=== PATIENT | female | born 1955 | race Hispanic/Latino ===

== ENCOUNTER 2017-07-01 23:26 | Observation (INO) | payer BC ==
[~2017-07-01] VITALS: Ht 154.9 cm; Wt 99.8 kg
[~2017-07-01 23:26] MED LIST: CHOL200016 PO; INSU100I13 SQ; INSU10VI4 SQ; METF10004 PO; MIRA25TA PO; PANT40TA25 PO; PRED5TAB PO; PUMP300C PO; SIMV40TA5 PO; TYL3B PO; ZOLP10TA6 PO
[2017-07-01 23:52] LABS: BASOPHILS % (AUTO) 0.6 % (0.0-5.0); EOSINOPHILS % (AUTO) 1.8 % (0.0-8.0); HEMATOCRIT 34.5 % (36-48); LYMPHOCYTES % (AUTO) 31.5 % (21.0-51.0); MEAN CORPUSCULAR HEMOGLOBIN 27.4 pg (27.0-33.0); MEAN CORPUSCULAR HGB CONC 32.5 g/dL (32.0-36.0); MEAN CORPUSCULAR VOLUME 84.1 fL (79-99); MONOCYTES % (AUTO) 7.7 % (3.0-13.0); NEUTROPHILS % (AUTO) 58.4 % (40.0-77.0); PLATELET COUNT (AUTO) 248 K/uL (130-400); RED CELL DISTRIBUTION WIDTH 14.8 % (11.0-15.5); WHITE BLOOD COUNT (AUTO) 8.4 K/uL (4.8-10.8)
[2017-07-01 23:56] LABS: APPEARANCE,URINE Clear (CLEAR); BILIRUBIN,URINE Negative (NEGATIVE); COLOR,URINE Yellow (YELLOW); GLUCOSE, URINE (UA) 250 mg/dL (NEGATIVE); KETONES,URINE Negative (NEGATIVE); LEUKOCYTE ESTERASE ,URINE Negative (NEGATIVE); NITRATE,URINE Negative (NEGATIVE); OCCULT BLOOD,URINE Nonhemolyzed Trace (NEGATIVE); PROTEIN,URINE Negative (NEGATIVE)
[2017-07-02 00:02] LABS: CREATININE 0.8 mg/dL (0.5-1.5); POTASSIUM 3.4 mmol/L (3.5-5.1)
[2017-07-02 00:03] LABS: BACTERIA,URINE None Seen /HPF (None Seen); RBC,URINE 0-1 /HPF (0-1); SQUAMOUS EPITHELIAL CELL,UR Rare /LPF (0-2); WBC,URINE None Seen /HPF (0-1); YEAST,URINE BUDDING Rare /HPF (None Seen)
[2017-07-02 00:12] LABS: ALBUMIN 3.4 g/dL (3.5-5.0); BILIRUBIN,TOTAL 0.3 mg/dL (0.2-1.0); TOTAL PROTEIN, SERUM 7.1 g/dL (6.0-8.3)
[2017-07-02] MEDS ORDERED: SODIUM CHLORIDE 0.9% 1000ML 1,000 ML IV ONE (00:43)
[2017-07-02] MEDS ORDERED: ONDANSETRON HCL 4 MG/2 ML VIAL ONE ×2 (00:43→02:31)
[2017-07-02] MEDS ORDERED: MORPHINE SULFATE 4 MG/1ML SYG ONE ×2 (00:44→02:32)
[2017-07-02] MEDS ORDERED: HYDROMORPHONE HCL 0.5 MG/0.5 ML ML ONE (03:35)
[2017-07-02] MEDS ORDERED: LIDOCAINE HCL-MPF 1% 2ML VIAL IJ PRN (07:15)
[2017-07-02] MEDS ORDERED: LACTULOSE 20 GM/30 ML UDCUP PO PRN (07:15)
[2017-07-02] MEDS ORDERED: SODIUM CHLORIDE 0.9% 10 ML VIAL IVP SCH (07:15)
[2017-07-02] MEDS ORDERED: GLUCAGON 1MG KIT 1 MG ML IM PRN (07:15)
[2017-07-02] MEDS ORDERED: DiphenhydrAMINE HCL 50 MG/ML VIAL IVP PRN (07:15)
[2017-07-02] MEDS ORDERED: DIPHENHYDRAMINE HCL 25 MG CAPSULE PO PRN (07:15)
[2017-07-02] MEDS ORDERED: POTASSIUM CHLORIDE 10% ELIXIR 20 MEQ/15 ML UDCUP PO PRN (07:15)
[2017-07-02] MEDS ORDERED: POTASSIUM CHLORIDE 20MEQ/100ML 100 ML IV PRN (07:15)
[2017-07-02] MEDS ORDERED: GUAIFENESIN-DM 200/20 MG 10 ML PO PRN (07:15)
[2017-07-02] MEDS ORDERED: ZOLPIDEM TARTRATE 5 MG TAB PO PRN (07:15)
[2017-07-02] MEDS ORDERED: MORPHINE SULFATE 2 MG/ML 1ML SYG IVP PRN (07:15)
[2017-07-02] MEDS ORDERED: GUAIFENESIN SUGAR-FREE 100 MG/5 ML UDCUP PO PRN (07:15)
[2017-07-02] MEDS ORDERED: DEXTROSE 50%-WATER 50 ML DISP.SYRIN IV PRN (07:15)
[2017-07-02] MEDS ORDERED: CLONIDINE HCL 0.1 MG TABLET PO PRN (07:15)
[2017-07-02] MEDS ORDERED: ONDANSETRON HCL 4 MG/2 ML VIAL IVP PRN (07:15)
[2017-07-02] MEDS ORDERED: ACETAMINOPHEN 325 MG TAB PO PRN ×2 (07:15)
[2017-07-02] MEDS ORDERED: MAG HYDROX/AL HYDROX/SIMETH ES 30 ML SUSP UDCUP PO PRN (07:15)
[2017-07-02] MEDS ORDERED: NITROGLYCERIN 0.4 MG SL TAB SL PRN (07:15)
[2017-07-02] MEDS: INSULIN R PO SS2 SQ SCH ×4 (07:30→21:00)
[2017-07-02 08:30] VITALS: BP 155/92
[2017-07-02 11:00] VITALS: BP 134/71
[2017-07-02] MEDS: CEFTRIAXONE SODIUM 1 GM IVP SCH (11:32)
[2017-07-02] MEDS: POTASSIUM CHLORIDE 20 MEQ ERTAB PO PRN (11:33)
[2017-07-02] MEDS: PANTOPRAZOLE SODIUM 40 MG TABLET.DR PO SCH (11:34)
[2017-07-02] MEDS ORDERED: INSU100I13 SQ ×3 (12:00)
[2017-07-02] MEDS ORDERED: ZOLP12.550 PO (12:00)
[2017-07-02] MEDS ORDERED: URIN1STR90 MC (12:00)
[2017-07-02] MEDS ORDERED: METF10004 PO (12:00)
[2017-07-02] MEDS ORDERED: SIMV40TA5 PO (12:00)
[2017-07-02] MEDS ORDERED: FISH1CAP49 PO (12:00)
[2017-07-02 16:00] VITALS: BP 148/87
[2017-07-02] MEDS ORDERED: PEG 3350/NA SULF,BICARB,CL/KCL 4000 ML SOLN PO ONE (19:00)
[2017-07-02 19:15] VITALS: BP 160/73
[2017-07-02 23:10] VITALS: BP 150/82
[2017-07-02 23:52] VITALS: BP 160/73
[2017-07-03] MEDS: POTASSIUM CHLORIDE 20 MEQ ERTAB PO PRN ×3 (00:56→17:46)
[2017-07-03 03:30] VITALS: BP 135/65
[2017-07-03 04:51] LABS: BASOPHILS % (AUTO) 0.7 % (0.0-5.0); EOSINOPHILS % (AUTO) 2.3 % (0.0-8.0); HEMATOCRIT 34.2 % (36-48); LYMPHOCYTES % (AUTO) 28.8 % (21.0-51.0); MEAN CORPUSCULAR HEMOGLOBIN 27.1 pg (27.0-33.0); MEAN CORPUSCULAR HGB CONC 31.9 g/dL (32.0-36.0); MEAN CORPUSCULAR VOLUME 84.9 fL (79-99); MONOCYTES % (AUTO) 8.9 % (3.0-13.0); NEUTROPHILS % (AUTO) 59.3 % (40.0-77.0); PLATELET COUNT (AUTO) 239 K/uL (130-400); RED BLOOD CELL COUNT(AUTO) 4.02 MIL/uL (4.00-5.50); RED CELL DISTRIBUTION WIDTH 15.1 % (11.0-15.5); WHITE BLOOD COUNT (AUTO) 7.8 K/uL (4.8-10.8)
[2017-07-03 05:10] LABS: ALBUMIN 3.2 g/dL (3.5-5.0); BILIRUBIN,TOTAL 0.4 mg/dL (0.2-1.0); CREATININE 0.7 mg/dL (0.5-1.5); POTASSIUM 3.1 mmol/L (3.5-5.1); TOTAL PROTEIN, SERUM 6.8 g/dL (6.0-8.3)
[2017-07-03] MEDS: CEFTRIAXONE SODIUM 1 GM IVP SCH (05:39)
[2017-07-03] MEDS: INSULIN R PO SS2 SQ SCH ×2 (05:43→17:38)
[2017-07-03 08:00] VITALS: BP 142/74
[2017-07-03 11:00] VITALS: BP 142/74
[2017-07-03] MEDS ORDERED: IOPAMIDOL-370 100 ML VIAL IV ONE (12:24)
[2017-07-03 13:46] VITALS: BP 147/79
[2017-07-03] MEDS: PANTOPRAZOLE SODIUM 40 MG TABLET.DR PO SCH (14:06)
[2017-07-03 16:05] VITALS: BP 127/64
[2017-07-03 19:29] VITALS: BP 129/68
== END 2017-07-03 20:35 | disposition home or self-care (01) ==
LOC: EDH 23:26 → EDHIP 07-02 06:45 → 3DH 07-02 07:31 → WSH 07-03 13:45
PROVIDERS: ADMIT Family Medicine; ATTEND Family Medicine
DX: N20.0 Calculus of kidney (principal); M32.9 Systemic lupus erythematosus, unspecified; K59.00 Constipation, unspecified; E87.6 Hypokalemia; E11.9 Type 2 diabetes mellitus without complications; I10 Essential (primary) hypertension; E78.5 Hyperlipidemia, unspecified; F41.9 Anxiety disorder, unspecified; K57.90 Diverticulosis of intestine, part unspecified, without perforation or abscess without bleeding; Z96.659 Presence of unspecified artificial knee joint; Z90.49 Acquired absence of other specified parts of digestive tract
CPT/HCPCS: 36415 ×3; 74176; 74400; 80053 ×2; 81001; 82150; 82948 ×7; 83690; 84484; 85025 ×2; 87040 ×2; 87088; 93005; 96365; 96375; 96376; 99285; A4218; G0378 ×38; J0696; J1170; J1815; J2270 ×2; J2405 ×2; J3480; J7030; Q9967

== ENCOUNTER → 2017-10-02 | Outpatient (CLI) | payer BC ==
[~2017-10-02] MED LIST changes: +FISH1CAP49 PO; +FLUO20CA30 PO; -INSU10VI4 SQ; +LORA1TAB3 PO; -PUMP300C PO; -TYL3B PO; +URIN1STR90 MC; -ZOLP10TA6 PO; +ZOLP12.550 PO
== END ==
LOC: RAH 15:49
PROVIDERS: ATTEND Urology
DX: N20.0 Calculus of kidney (principal)
CPT/HCPCS: 74018; 76100

== ENCOUNTER 2017-10-23 05:15 | Emergency (ER) | payer BC ==
[~2017-10-23 05:15] MED LIST changes: -FLUO20CA30 PO; -LORA1TAB3 PO
[2017-10-23] MEDS ORDERED: MORPHINE SULFATE 4 MG/1ML SYG ONE (05:42)
[2017-10-23] MEDS ORDERED: ONDANSETRON HCL MDV 20ML 2 MG/ML VIAL ONE (05:42)
[2017-10-23 05:43] LABS: EOSINOPHILS % (AUTO) 3.4 % (0.0-8.0); HEMATOCRIT 35.7 % (36-48); LYMPHOCYTES % (AUTO) 33.4 % (21.0-51.0); MEAN CORPUSCULAR HEMOGLOBIN 27.1 pg (27.0-33.0); MEAN CORPUSCULAR HGB CONC 32.5 g/dL (32.0-36.0); MEAN CORPUSCULAR VOLUME 83.5 fL (79-99); MONOCYTES % (AUTO) 8.7 % (3.0-13.0); NEUTROPHILS % (AUTO) 53.5 % (40.0-77.0); PLATELET COUNT (AUTO) 269 K/uL (130-400); RED BLOOD CELL COUNT(AUTO) 4.27 MIL/uL (4.00-5.50); RED CELL DISTRIBUTION WIDTH 15.3 % (11.0-15.5); WHITE BLOOD COUNT (AUTO) 7.7 K/uL (4.8-10.8)
[2017-10-23 05:51] LABS: CREATININE 0.8 mg/dL (0.5-1.5); POTASSIUM 3.2 mmol/L (3.5-5.1)
[2017-10-23 05:55] LABS: INR 0.94 (0.85-1.15); PROTHROMBIN TIME 9.7 SEC (9.6-11.6)
[2017-10-23 06:09] LABS: ALBUMIN 3.5 g/dL (3.5-5.0); BILIRUBIN,TOTAL 0.4 mg/dL (0.2-1.0); CREATINE KINASE MB 2.5 ng/mL (0.5-3.6); TOTAL PROTEIN, SERUM 7.4 g/dL (6.0-8.3)
[2017-10-23 06:10] LABS: APPEARANCE,URINE Clear (CLEAR); BILIRUBIN,URINE Negative (NEGATIVE); COLOR,URINE Yellow (YELLOW); GLUCOSE, URINE (UA) Negative (NEGATIVE); KETONES,URINE Negative (NEGATIVE); LEUKOCYTE ESTERASE ,URINE Trace (NEGATIVE); NITRATE,URINE Negative (NEGATIVE); OCCULT BLOOD,URINE Negative (NEGATIVE); PH,URINE 7.5 (5.0-8.0); PROTEIN,URINE Negative (NEGATIVE); UROBILINOGEN,URINE 0.2 mg/dL (0.2-1.0)
[2017-10-23 06:16] LABS: BACTERIA,URINE None Seen /HPF (None Seen); MUCUS,URINE Rare LPF (None Seen); RBC,URINE None Seen /HPF (0-1); SQUAMOUS EPITHELIAL CELL,UR Rare /HPF (0-2); WBC,URINE 0-1 /HPF (0-1)
[2017-10-23 06:18] LABS: AMPHET/METH SCREEN,URINE NEGATIVE (NEGATIVE); BARBITURATE SCREEN, URINE NEGATIVE (NEGATIVE); BENZODIAZEPINES SCREEN,URINE NEGATIVE (NEGATIVE); CANNABINOID SCREEN,URINE NEGATIVE (NEGATIVE); COCAINE SCREEN,URINE NEGATIVE (NEGATIVE); OPIATE SCREEN,URINE NEGATIVE (NEGATIVE); PHENCYCLIDINE SCREEN,URINE NEGATIVE (NEGATIVE)
[2017-10-23] MEDS ORDERED: POTASSIUM BICARB/CIT AC 25 MEQ TABLET.EFF ONE (09:17)
== END 2017-10-23 09:38 | disposition home or self-care (01) ==
LOC: EDH 05:15
DX: F41.9 Anxiety disorder, unspecified (principal); E87.6 Hypokalemia; I10 Essential (primary) hypertension; R20.2 Paresthesia of skin; E11.9 Type 2 diabetes mellitus without complications; L93.0 Discoid lupus erythematosus; R79.1 Abnormal coagulation profile; Z79.4 Long term (current) use of insulin; Z88.2 Allergy status to sulfonamides
CPT/HCPCS: 36415; 70450; 71045; 80053; 80305; 81001; 82550; 82553; 83874; 84484; 85025; 85610; 85730; 93005; 96374; 96375; 99285; J2270

== ENCOUNTER → 2017-11-01 | Outpatient (CLI) | payer BC ==
[~2017-11-01] MED LIST changes: +FLUO20CA30 PO; +LORA1TAB3 PO
== END ==
LOC: RAH 16:03
PROVIDERS: ATTEND Urology
DX: N20.2 Calculus of kidney with calculus of ureter (principal)
CPT/HCPCS: 74018; 76100

== ENCOUNTER 2017-11-14 02:11 | Observation (INO) | payer BC ==
[~2017-11-14] VITALS: Ht 155 cm; Wt 100.0 kg
[~2017-11-14 02:11] MED LIST changes: -FLUO20CA30 PO; -LORA1TAB3 PO
[2017-11-14] MEDS ORDERED: ONDANSETRON ODT 4 MG TAB ONE (02:27)
[2017-11-14] MEDS ORDERED: MORPHINE SULFATE 4 MG/1ML SYG ONE ×2 (02:39→03:31)
[2017-11-14 02:45] LABS: BASOPHILS % (AUTO) 0.6 % (0.0-5.0); EOSINOPHILS % (AUTO) 1.7 % (0.0-8.0); HEMATOCRIT 37.7 % (36-48); MEAN CORPUSCULAR HEMOGLOBIN 26.9 pg (27.0-33.0); MEAN CORPUSCULAR HGB CONC 31.9 g/dL (32.0-36.0); MEAN CORPUSCULAR VOLUME 84.1 fL (79-99); MONOCYTES % (AUTO) 6.3 % (3.0-13.0); NEUTROPHILS % (AUTO) 66.4 % (40.0-77.0); NUCLEATED RED BLOOD CELLS 0.1 % (0.0-0.19); PLATELET COUNT (AUTO) 315 K/uL (130-400); RED BLOOD CELL COUNT(AUTO) 4.49 MIL/uL (4.00-5.50); RED CELL DISTRIBUTION WIDTH 15.8 % (11.0-15.5); WHITE BLOOD COUNT (AUTO) 12.6 K/uL (4.8-10.8)
[2017-11-14 02:58] LABS: CREATININE 0.9 mg/dL (0.5-1.5); POTASSIUM 3.1 mmol/L (3.5-5.1)
[2017-11-14 03:02] LABS: ALBUMIN 3.7 g/dL (3.5-5.0); BILIRUBIN,TOTAL 0.3 mg/dL (0.2-1.0)
[2017-11-14] MEDS ORDERED: IOPAMIDOL-370 75 ML VIAL IV ONE (03:18)
[2017-11-14] MEDS ORDERED: DICYCLOMINE HCL 10 MG/ML 2ML AMP IM ONE (03:30)
[2017-11-14] MEDS ORDERED: ONDANSETRON HCL 4 MG/2 ML VIAL ONE (03:30)
[2017-11-14 04:20] LABS: APPEARANCE,URINE Clear (CLEAR); BILIRUBIN,URINE Negative (NEGATIVE); COLOR,URINE Yellow (YELLOW); GLUCOSE, URINE (UA) Negative (NEGATIVE); KETONES,URINE Negative (NEGATIVE); LEUKOCYTE ESTERASE ,URINE Trace (NEGATIVE); NITRATE,URINE Negative (NEGATIVE); OCCULT BLOOD,URINE Moderate (NEGATIVE); PROTEIN,URINE Negative (NEGATIVE); UROBILINOGEN,URINE 0.2 mg/dL (0.2-1.0)
[2017-11-14 04:33] LABS: BACTERIA,URINE Rare /HPF (None Seen); SQUAMOUS EPITHELIAL CELL,UR 0-2 /HPF (0-2); WBC,URINE 0-1 /HPF (0-1)
[2017-11-14] MEDS ORDERED: METRONIDAZOLE 500MG/100ML BAG 100 ML ONE (05:00)
[2017-11-14] MEDS ORDERED: POTASSIUM CHLORIDE 10% ELIXIR 20 MEQ/15 ML UDCUP PO PRN (05:45)
[2017-11-14] MEDS ORDERED: ONDANSETRON HCL 4 MG/2 ML VIAL IVP PRN (05:45)
[2017-11-14] MEDS ORDERED: NITROGLYCERIN 0.4 MG SL TAB SL PRN (05:45)
[2017-11-14] MEDS ORDERED: MAG HYDROX/AL HYDROX/SIMETH ES 30 ML SUSP UDCUP PO PRN (05:45)
[2017-11-14] MEDS ORDERED: LACTULOSE 20 GM/30 ML UDCUP PO PRN (05:45)
[2017-11-14] MEDS ORDERED: ZOLPIDEM TARTRATE 5 MG TAB PO PRN (05:45)
[2017-11-14] MEDS ORDERED: GUAIFENESIN-DM 200/20 MG 10 ML PO PRN (05:45)
[2017-11-14] MEDS ORDERED: GLUCAGON 1MG KIT 1 MG ML IM PRN (05:45)
[2017-11-14] MEDS ORDERED: GUAIFENESIN SUGAR-FREE 100 MG/5 ML UDCUP PO PRN (05:45)
[2017-11-14] MEDS ORDERED: CLONIDINE HCL 0.1 MG TABLET PO PRN (05:45)
[2017-11-14] MEDS ORDERED: DEXTROSE 50%-WATER 50 ML DISP.SYRIN IV PRN (05:45)
[2017-11-14] MEDS ORDERED: DIPHENHYDRAMINE HCL 25 MG CAPSULE PO PRN (05:45)
[2017-11-14] MEDS ORDERED: ONDANSETRON HCL MDV 20ML 2 MG/ML VIAL IVP PRN (05:45)
[2017-11-14] MEDS ORDERED: POTASSIUM CHLORIDE 20MEQ/100ML 100 ML IV PRN (05:45)
[2017-11-14] MEDS ORDERED: LIDOCAINE HCL-MPF 1% 2ML VIAL IJ PRN (05:45)
[2017-11-14] MEDS ORDERED: ACETAMINOPHEN 325 MG TAB PO PRN ×2 (05:45)
[2017-11-14] MEDS ORDERED: DiphenhydrAMINE HCL 50 MG/ML VIAL IVP PRN (05:45)
[2017-11-14] MEDS ORDERED: SODIUM CHLORIDE 0.9% 1000ML 1,000 ML IV SCH (06:00)
[2017-11-14] MEDS: INSULIN R PO SS2 SQ SCH ×4 (07:30→20:33)
[2017-11-14] MEDS ORDERED: FLUO20CA30 PO (07:43)
[2017-11-14] MEDS ORDERED: INSU100I13 SQ (07:43)
[2017-11-14] MEDS ORDERED: LORA1TAB3 PO (07:51)
[2017-11-14 08:00] VITALS: BP 141/92
[2017-11-14] MEDS: PANTOPRAZOLE SODIUM 40 MG TABLET.DR PO SCH (09:36)
[2017-11-14] MEDS ORDERED: MORPHINE SULFATE 4 MG/1ML SYG IVP PRN (10:15)
[2017-11-14 11:00] VITALS: BP 112/70
[2017-11-14] MEDS: POTASSIUM CHLORIDE 20 MEQ ERTAB PO PRN ×3 (11:10→20:09)
[2017-11-14] MEDS: METRONIDAZOLE 500MG/100ML BAG 100 ML IVPB SCH ×2 (13:17→20:04)
[2017-11-14 16:00] VITALS: BP 152/67
[2017-11-14 19:00] VITALS: BP 144/62
[2017-11-15] VITALS: BP 132/66
[2017-11-15 04:00] VITALS: BP 115/62
[2017-11-15 04:12] LABS: BASOPHILS % (AUTO) 0.6 % (0.0-5.0); EOSINOPHILS % (AUTO) 3.7 % (0.0-8.0); HEMATOCRIT 29.8 % (36-48); LYMPHOCYTES % (AUTO) 37.8 % (21.0-51.0); MEAN CORPUSCULAR HEMOGLOBIN 28.5 pg (27.0-33.0); MEAN CORPUSCULAR VOLUME 83.8 fL (79-99); MONOCYTES % (AUTO) 8.9 % (3.0-13.0); PLATELET COUNT (AUTO) 258 K/uL (130-400); RED BLOOD CELL COUNT(AUTO) 3.56 MIL/uL (4.00-5.50); RED CELL DISTRIBUTION WIDTH 15.8 % (11.0-15.5)
[2017-11-15 04:42] LABS: ALBUMIN 2.9 g/dL (3.5-5.0); BILIRUBIN,TOTAL 0.3 mg/dL (0.2-1.0); CREATININE 0.7 mg/dL (0.5-1.5); POTASSIUM 3.5 mmol/L (3.5-5.1); TOTAL PROTEIN, SERUM 6.3 g/dL (6.0-8.3)
[2017-11-15] MEDS: METRONIDAZOLE 500MG/100ML BAG 100 ML IVPB SCH ×2 (05:47→14:47)
[2017-11-15] MEDS: POTASSIUM CHLORIDE 20 MEQ ERTAB PO PRN ×2 (05:47→12:06)
[2017-11-15] MEDS: INSULIN R PO SS2 SQ SCH ×3 (06:03→16:30)
[2017-11-15 08:00] VITALS: BP 142/73
[2017-11-15] MEDS: PANTOPRAZOLE SODIUM 40 MG TABLET.DR PO SCH (09:33)
[2017-11-15 11:00] VITALS: BP 127/55
[2017-11-15 16:00] VITALS: BP 138/73
== END 2017-11-15 18:05 | disposition home or self-care (01) ==
LOC: EDH 02:11 → EDHIP 05:02 → 3AH 07:26
PROVIDERS: ADMIT Family Medicine; ATTEND Family Medicine
DX: K52.9 Noninfective gastroenteritis and colitis, unspecified (principal); N20.0 Calculus of kidney; R10.9 Unspecified abdominal pain; E11.9 Type 2 diabetes mellitus without complications; E78.5 Hyperlipidemia, unspecified; I10 Essential (primary) hypertension; I25.10 Atherosclerotic heart disease of native coronary artery without angina pectoris; Z96.659 Presence of unspecified artificial knee joint
CPT/HCPCS: 36415 ×2; 74177; 80053 ×2; 81001; 82948 ×6; 83690; 85025 ×2; 96365; 96366 ×2; 96372 ×2; 99285; G0378 ×37; J0500; J1815 ×4; J2270 ×2; J2405; J3490 ×5; Q9967; C9113

== ENCOUNTER → 2018-04-04 | Outpatient (CLI) | payer BC ==
[~2018-04-04] MED LIST changes: -CHOL200016 PO; +FLUO20CA30 PO; +LORA1TAB3 PO; +METF-446 PO; -METF10004 PO; +[UNRECOGNIZED DRUG - CODE] PO
== END | disposition home or self-care (01) ==
LOC: RAH 12:32
PROVIDERS: ATTEND Physical Medicine & Rehabilitation
DX: M47.24 Other spondylosis with radiculopathy, thoracic region (principal); M47.896 Other spondylosis, lumbar region; M48.07 Spinal stenosis, lumbosacral region
CPT/HCPCS: 72070; 72110

== ENCOUNTER → 2018-05-02 | Outpatient (CLI) | payer BC | END | disposition home or self-care (01) | LOC: RAH 04-30 12:05 | PROVIDERS: ATTEND Physical Medicine & Rehabilitation | DX: M51.14 Intervertebral disc disorders with radiculopathy, thoracic region (principal); M48.04 Spinal stenosis, thoracic region; M47.24 Other spondylosis with radiculopathy, thoracic region | CPT/HCPCS: 72146 ==

== ENCOUNTER → 2018-10-22 | Outpatient (CLI) | payer BC ==
[~2018-10-22] MED LIST changes: +CHOL200016 PO; -[UNRECOGNIZED DRUG - CODE] PO
== END | disposition home or self-care (01) ==
LOC: RAH 09:51
PROVIDERS: ATTEND Family Medicine
DX: I08.0 Rheumatic disorders of both mitral and aortic valves (principal); I63.331 Cerebral infarction due to thrombosis of right posterior cerebral artery
CPT/HCPCS: 93306; 93880

== ENCOUNTER → 2018-11-04 | Outpatient (CLI) | payer BC | END | disposition home or self-care (01) | LOC: RAH 10:47 | PROVIDERS: ATTEND Family Medicine | DX: G93.89 Other specified disorders of brain (principal); I63.331 Cerebral infarction due to thrombosis of right posterior cerebral artery | CPT/HCPCS: 70544 ==

== ENCOUNTER 2019-03-01 10:27 | Observation (INO) | payer BC ==
[~2019-03-01] VITALS: Ht 157.5 cm; Wt 100.7 kg
[2019-03-01 10:55] LABS: BASOPHILS % (AUTO) 0.7 % (0.0-5.0); EOSINOPHILS % (AUTO) 3.2 % (0.0-8.0); HEMATOCRIT 35.8 % (36-48); LYMPHOCYTES % (AUTO) 31.1 % (21.0-51.0); MEAN CORPUSCULAR HEMOGLOBIN 26.8 pg (27.0-33.0); MEAN CORPUSCULAR VOLUME 83.8 fL (79-99); MONOCYTES % (AUTO) 7.4 % (3.0-13.0); NEUTROPHILS % (AUTO) 57.6 % (40.0-77.0); PLATELET COUNT (AUTO) 256 K/uL (130-400); RED BLOOD CELL COUNT(AUTO) 4.26 MIL/uL (4.00-5.50); RED CELL DISTRIBUTION WIDTH 15.5 % (11.0-15.5); WHITE BLOOD COUNT (AUTO) 6.1 K/uL (4.8-10.8)
[2019-03-01 11:20] LABS: CREATININE 0.8 mg/dL (0.5-1.5); POTASSIUM 3.6 mmol/L (3.5-5.1)
[2019-03-01 11:24] LABS: ALBUMIN 3.4 g/dL (3.5-5.0); BILIRUBIN,TOTAL 0.3 mg/dL (0.2-1.0); TOTAL PROTEIN, SERUM 6.9 g/dL (6.0-8.3)
[2019-03-01 11:27] LABS: APPEARANCE,URINE Clear (CLEAR); BILIRUBIN,URINE Negative (NEGATIVE); COLOR,URINE Yellow (YELLOW); GLUCOSE, URINE (UA) TRACE mg/dL (NEGATIVE); KETONES,URINE Negative (NEGATIVE); LEUKOCYTE ESTERASE ,URINE Negative (NEGATIVE); NITRATE,URINE Negative (NEGATIVE); OCCULT BLOOD,URINE Negative (NEGATIVE); PROTEIN,URINE Negative (NEGATIVE); UROBILINOGEN,URINE 0.2 mg/dL (0.2-1.0)
[2019-03-01 11:30] LABS: INR 0.95 (0.85-1.15); PARTIAL THROMBOPLASTIN TIME 25.8 SEC (26.3-35.5)
[2019-03-01 11:34] LABS: BACTERIA,URINE Rare /HPF (None Seen); RBC,URINE 0-1 /HPF (0-1); SQUAMOUS EPITHELIAL CELL,UR Rare /HPF (0-2); WBC,URINE 0-1 /HPF (0-1)
[2019-03-01 11:44] LABS: AMPHET/METH SCREEN,URINE NEGATIVE (NEGATIVE); BARBITURATE SCREEN, URINE NEGATIVE (NEGATIVE); BENZODIAZEPINES SCREEN,URINE NEGATIVE (NEGATIVE); CANNABINOID SCREEN,URINE NEGATIVE (NEGATIVE); COCAINE SCREEN,URINE NEGATIVE (NEGATIVE); OPIATE SCREEN,URINE NEGATIVE (NEGATIVE); PHENCYCLIDINE SCREEN,URINE NEGATIVE (NEGATIVE)
[2019-03-01] MEDS ORDERED: DIAZEPAM 5 MG TABLET ONE (11:49)
[2019-03-01] MEDS ORDERED: IOHEXOL-350 75 ML VIAL IV ONE (11:51)
[2019-03-01] MEDS ORDERED: ASPIRIN 325 MG TABLET ONE (16:02)
[2019-03-01] MEDS ORDERED: SODIUM CHLORIDE 0.9% 1000ML 1,000 ML IV ONE (16:03)
[2019-03-01] MEDS ORDERED: POTASSIUM CHLORIDE 20MEQ/100ML 100 ML IV PRN (17:00)
[2019-03-01] MEDS ORDERED: POTASSIUM CHLORIDE 10% ELIXIR 20 MEQ/15 ML UDCUP PO PRN (17:00)
[2019-03-01] MEDS: SODIUM CHLORIDE 0.9% 1000ML 1,000 ML IV SCH (17:00)
[2019-03-01] MEDS ORDERED: POTASSIUM CHLORIDE 20 MEQ ERTAB PO PRN (17:00)
[2019-03-01] MEDS ORDERED: LIDOCAINE HCL-MPF 1% 2ML VIAL IJ PRN (17:00)
[2019-03-01 19:30] LABS: ALBUMIN 3.6 g/dL (3.5-5.0); BILIRUBIN,TOTAL 0.3 mg/dL (0.2-1.0); CREATININE 0.8 mg/dL (0.5-1.5); POTASSIUM 3.9 mmol/L (3.5-5.1); TOTAL PROTEIN, SERUM 7.5 g/dL (6.0-8.3)
[2019-03-01 19:34] LABS: HEMOGLOBIN A1C 8.8 % (4.0-6.0)
[2019-03-01 21:30] VITALS: BP 157/71
[2019-03-01] MEDS ORDERED: KETOROLAC TROMETHAMINE 15MG/ML IV PRN (23:45)
[2019-03-01] MEDS ORDERED: MORPHINE SULFATE 2 MG/ML 1ML SYG ONE (23:50)
[2019-03-02] VITALS (7 sets, daily range): BP systolic 143–167; BP diastolic 65–98
[2019-03-02] MEDS: METHYLPREDNISOLONE SOD SUCC 125MG/2ML VIAL IVP SCH ×3 (01:39→21:13)
[2019-03-02] MEDS: MORPHINE SULFATE 2 MG/ML 1ML SYG IVP PRN ×2 (04:00→21:26)
[2019-03-02 04:48] LABS: CREATININE 0.8 mg/dL (0.5-1.5); POTASSIUM 3.7 mmol/L (3.5-5.1)
[2019-03-02 04:56] LABS: HEMATOCRIT 36.8 % (36-48); MEAN CORPUSCULAR HEMOGLOBIN 27.2 pg (27.0-33.0); MEAN CORPUSCULAR HGB CONC 32.4 g/dL (32.0-36.0); MEAN CORPUSCULAR VOLUME 84.1 fL (79-99); PLATELET COUNT (AUTO) 286 K/uL (130-400); RED BLOOD CELL COUNT(AUTO) 4.38 MIL/uL (4.00-5.50); RED CELL DISTRIBUTION WIDTH 16.1 % (11.0-15.5); WHITE BLOOD COUNT (AUTO) 8.8 K/uL (4.8-10.8)
[2019-03-02] MEDS ORDERED: OMEG100032 PO (05:43)
[2019-03-02] MEDS ORDERED: METF-446 PO (05:43)
[2019-03-02] MEDS ORDERED: WHEA1POW2 PO (05:43)
[2019-03-02] MEDS ORDERED: MAGN400T40 PO (05:43)
[2019-03-02] MEDS ORDERED: ASPI-1026 PO (05:43)
[2019-03-02] MEDS ORDERED: ZOLP10TA6 PO (05:43)
[2019-03-02] MEDS ORDERED: POTA10TA19 PO (05:58)
[2019-03-02 06:02] LABS: ERYTHROCYTE SEDIMENTATION RATE 31 MM/HR (0-30)
[2019-03-02] MEDS ORDERED: PROBIOTIC PO (06:02)
[2019-03-02] MEDS: SODIUM CHLORIDE 0.9% 1000ML 1,000 ML IV SCH ×2 (07:06→21:13)
[2019-03-02] MEDS ORDERED: LORAZEPAM 2 MG/ML 1 ML VIAL IVP PRN (08:15)
[2019-03-02] MEDS: ASPIRIN 325MG EC TAB 325 MG TABLET.DR PO SCH (10:44)
[2019-03-02] MEDS ORDERED: HUMLIS7525 SQ ×3 (17:23)
[2019-03-02] MEDS ORDERED: INSULIN HUMULIN R 100 UNIT/ML 3ML ONE (17:31)
[2019-03-02] MEDS ORDERED: ZOLPIDEM TARTRATE 5 MG TAB PO PRN (18:00)
[2019-03-02] MEDS ORDERED: SIMVASTATIN 20 MG TABLET PO SCH (21:00)
[2019-03-02] MEDS: INSULIN HUMULIN R 100 UNIT/ML 3ML SQ SCH (21:25)
[2019-03-03 03:30] VITALS: BP 151/71
[2019-03-03 05:25] LABS: HEMATOCRIT 36.6 % (36-48); MEAN CORPUSCULAR HEMOGLOBIN 27.1 pg (27.0-33.0); MEAN CORPUSCULAR HGB CONC 32.2 g/dL (32.0-36.0); PLATELET COUNT (AUTO) 273 K/uL (130-400); RED BLOOD CELL COUNT(AUTO) 4.36 MIL/uL (4.00-5.50); WHITE BLOOD COUNT (AUTO) 8.5 K/uL (4.8-10.8)
[2019-03-03 05:35] LABS: CREATININE 0.8 mg/dL (0.5-1.5); POTASSIUM 3.9 mmol/L (3.5-5.1)
[2019-03-03] MEDS: INSULIN HUMULIN R 100 UNIT/ML 3ML SQ SCH ×3 (06:27→16:42)
[2019-03-03 06:53] LABS: ERYTHROCYTE SEDIMENTATION RATE 30 MM/HR (0-30)
[2019-03-03] MEDS ORDERED: INSULIN HUMULIN 70/30 100 UNIT/ML 3ML SQ SCH ×3 (07:30→16:30)
[2019-03-03 08:08] VITALS: BP 138/79
[2019-03-03] MEDS: METHYLPREDNISOLONE SOD SUCC 125MG/2ML VIAL IVP SCH (08:26)
[2019-03-03] MEDS: ASPIRIN 325MG EC TAB 325 MG TABLET.DR PO SCH (08:27)
[2019-03-03] MEDS ORDERED: PANTOPRAZOLE SODIUM 40 MG TABLET.DR PO SCH (09:00)
[2019-03-03 11:54] VITALS: BP 178/79
[2019-03-03 16:25] VITALS: BP 165/81
== END 2019-03-03 18:37 | disposition home or self-care (01) ==
LOC: EDH 10:27 → EDHIP 14:19 → 4BH 21:57
PROVIDERS: ADMIT Internal Medicine; ATTEND Internal Medicine
DX: G51.0 Bell's palsy (principal); E11.9 Type 2 diabetes mellitus without complications; E66.01 Morbid (severe) obesity due to excess calories; E78.5 Hyperlipidemia, unspecified; R47.1 Dysarthria and anarthria; G93.89 Other specified disorders of brain; I10 Essential (primary) hypertension; I25.10 Atherosclerotic heart disease of native coronary artery without angina pectoris; R13.10 Dysphagia, unspecified; Z79.4 Long term (current) use of insulin; Z79.82 Long term (current) use of aspirin; Z86.73 Personal history of transient ischemic attack (TIA), and cerebral infarction without residual deficits; Z95.5 Presence of coronary angioplasty implant and graft; Z79.01 Long term (current) use of anticoagulants; Z79.899 Other long term (current) drug therapy
CPT/HCPCS: 36415 ×3; 70450; 70496; 70498; 70551; 71045; 72141; 73030; 80048 ×2; 80053; 80305; 81001; 82550; 82948 ×8; 83036; 83721; 84484; 84702; 85025; 85027 ×2; 85610; 85651 ×3; 85730; 92522; 92610; 93005; 96372 ×2; 96374; 96375; 96376 ×2; 99283; G0378 ×50; J1815 ×8; J2060; J2930 ×4; J7030 ×2; Q9967

== ENCOUNTER 2019-07-22 06:35 | Observation (INO) | payer BC ==
[2019-07-18 17:15] VITALS: BP 170/70
[2019-07-18 17:45] LABS: POTASSIUM 3.9 mmol/L (3.5-5.1)
[2019-07-18 21:45] LABS: BASOPHILS % (AUTO) 0.8 % (0.0-5.0); LYMPHOCYTES % (AUTO) 23.3 % (21.0-51.0); MEAN CORPUSCULAR HEMOGLOBIN 25.6 pg (27.0-33.0); MEAN CORPUSCULAR HGB CONC 28.7 g/dL (32.0-36.0); MEAN CORPUSCULAR VOLUME 89.2 fL (79-99); MONOCYTES % (AUTO) 6.7 % (3.0-13.0); NEUTROPHILS % (AUTO) 67.8 % (40.0-77.0); PLATELET COUNT (AUTO) 293 K/uL (130-400); RED BLOOD CELL COUNT(AUTO) 4.26 MIL/uL (4.00-5.50); RED CELL DISTRIBUTION WIDTH 14.8 % (11.0-15.5); WHITE BLOOD COUNT (AUTO) 7.1 K/uL (4.8-10.8)
--- NOTE | 2019-07-21 13:45 | NUR ---
ABNORMAL LABS PER ROSIE, MAY FAX LAB RESULT TO OFFICE AND SHE WILL SHOW IT TO DR. HURT, HE WILL BE IN OFFICE THIS PM. CBC FAXED.
--- NOTE | 2019-07-21 13:50 | NUR ---
ORDERS CBC RESULT REVIEWED BY DR. HURT, ORDERS TO REPEAT CBC IN AM, UPON ARRIVAL.
[~2019-07-22] VITALS: Ht 154.9 cm; Wt 102.2 kg
[2019-07-22] VITALS (26 sets, daily range): BP systolic 130–178; BP diastolic 70–96
[~2019-07-22 06:35] MED LIST changes: +ASPI-1026 PO; -CHOL200016 PO; -FISH1CAP49 PO; -FLUO20CA30 PO; +HUMLIS7525 SQ; -INSU100I13 SQ; -LORA1TAB3 PO; +MAGN400T40 PO; +OMEG100032 PO; -PRED5TAB PO; +PROBIOTIC PO; +SIMV-46 PO; -SIMV40TA5 PO; +WHEA1POW2 PO; +ZOLP10TA6 PO; -ZOLP12.550 PO
[2019-07-22 06:53] LABS: BASOPHILS % (AUTO) 0.5 % (0.0-5.0); EOSINOPHILS % (AUTO) 2.7 % (0.0-8.0); HEMATOCRIT 36.1 % (36-48); LYMPHOCYTES % (AUTO) 32.9 % (21.0-51.0); MEAN CORPUSCULAR HGB CONC 30.5 g/dL (32.0-36.0); MEAN CORPUSCULAR VOLUME 85.3 fL (79-99); MONOCYTES % (AUTO) 7.9 % (3.0-13.0); NEUTROPHILS % (AUTO) 55.6 % (40.0-77.0); PLATELET COUNT (AUTO) 286 K/uL (130-400); RED BLOOD CELL COUNT(AUTO) 4.23 MIL/uL (4.00-5.50); RED CELL DISTRIBUTION WIDTH 14.8 % (11.0-15.5); WHITE BLOOD COUNT (AUTO) 7.5 K/uL (4.8-10.8)
[2019-07-22] MEDS ORDERED: LIDOCAINE 1%-EPI 1:100,000 20 ML VIAL IJ ONE (06:54)
[2019-07-22] MEDS ORDERED: SODIUM CHLORIDE 0.9% 1000ML 1,000 ML IV ONE (07:02)
[2019-07-22] MEDS ORDERED: SUCCINYLCHOLINE 200MG/10ML SYR ONE (07:04)
[2019-07-22] MEDS ORDERED: LIDOCAINE HCL-MPF 1% 5ML AMP IJ ONE (07:04)
[2019-07-22] MEDS ORDERED: PROPOFOL 10 MG/ML 20ML VIAL IV ONE (07:05)
[2019-07-22] MEDS ORDERED: FENTANYL CITRATE PF 50 MCG/1 ML 2ML VIAL ONE ×2 (07:05→08:06)
[2019-07-22] MEDS ORDERED: PRED5TAB PO (07:29)
[2019-07-22] MEDS ORDERED: CEFAZOLIN SODIUM 1 GM VIAL ONE (07:32)
[2019-07-22] MEDS ORDERED: DEXAMETHASONE SOD PHOSPHATE 10MG/ML 1ML VIAL ONE (07:50)
[2019-07-22] MEDS ORDERED: ESMOLOL HCL 10 MG/ML 10 ML VIAL ONE (08:20)
[2019-07-22] MEDS ORDERED: FENTANYL CITRATE PF 50 MCG/1 ML 5ML AMP IV ONE (08:20)
[2019-07-22] MEDS ORDERED: SODIUM CHLORIDE 0.9% 10 ML VIAL ONE (08:20)
[2019-07-22] MEDS ORDERED: PHENYLEPHRINE HCL 10 MG/ML 1ML VIAL IV ONE (08:20)
[2019-07-22] MEDS ORDERED: MORPHINE-NS 50 MG/50 ML 50 ML IV ONE (11:21)
[2019-07-22] MEDS ORDERED: ACETAMINOPHEN-CODEINE 300/30MG TAB PO PRN (11:45)
[2019-07-22] MEDS ORDERED: PHARMACY COMMUNICATION MISC SCH (11:45)
[2019-07-22] MEDS ORDERED: MORPHINE-NS 50 MG/50 ML 50 ML IV PRN (12:30)
[2019-07-22] MEDS ORDERED: NALOXONE HCL 0.4 MG/1 ML ML IVP PRN (12:30)
[2019-07-22] MEDS: CEPHALEXIN 500 MG CAPSULE PO SCH ×2 (16:00→22:56)
[2019-07-22] MEDS: DEXTROSE 5 % AND 0.9 % NACL 1,000 ML IV SCH (16:03)
[2019-07-22] MEDS ORDERED: INSULIN HUMULIN 70/30 100 UNIT/ML 3ML SQ SCH (16:30)
[2019-07-22] MEDS: INSULIN HUMULIN R 100 UNIT/ML 3ML SQ SCH ×2 (16:30→20:47)
[2019-07-22] MEDS: FISH OIL 1000 MG/CAP PO SCH (16:57)
[2019-07-22] MEDS: METFORMIN HCL 500 MG TABLET PO SCH (17:01)
[2019-07-22] MEDS ORDERED: ZOLPIDEM TARTRATE 5 MG TAB PO SCH (21:00)
[2019-07-22] MEDS ORDERED: SIMVASTATIN 20 MG TABLET PO SCH (21:00)
[2019-07-23] MEDS: DEXTROSE 5 % AND 0.9 % NACL 1,000 ML IV SCH (00:15)
[2019-07-23 03:42] VITALS: BP 150/86
[2019-07-23] MEDS: INSULIN HUMULIN R 100 UNIT/ML 3ML SQ SCH (06:33)
[2019-07-23 07:08] LABS: HEMATOCRIT 35.3 % (36-48); MEAN CORPUSCULAR HEMOGLOBIN 25.9 pg (27.0-33.0); MEAN CORPUSCULAR HGB CONC 30.6 g/dL (32.0-36.0); MEAN CORPUSCULAR VOLUME 84.7 fL (79-99); PLATELET COUNT (AUTO) 285 K/uL (130-400); RED BLOOD CELL COUNT(AUTO) 4.17 MIL/uL (4.00-5.50); RED CELL DISTRIBUTION WIDTH 14.8 % (11.0-15.5); WHITE BLOOD COUNT (AUTO) 11.8 K/uL (4.8-10.8)
[2019-07-23 07:30] VITALS: BP 149/71
[2019-07-23] MEDS ORDERED: PROBIOTIC PO SCH (07:30)
[2019-07-23] MEDS ORDERED: INSULIN HUMULIN 70/30 100 UNIT/ML 3ML SQ SCH ×2 (07:30→11:30)
[2019-07-23] MEDS: FISH OIL 1000 MG/CAP PO SCH (08:00)
[2019-07-23] MEDS: METFORMIN HCL 500 MG TABLET PO SCH (08:32)
[2019-07-23] MEDS ORDERED: PREDNISONE 5 MG TABLET PO SCH (09:00)
[2019-07-23] MEDS ORDERED: PANTOPRAZOLE SODIUM 40 MG TABLET.DR PO SCH (09:00)
[2019-07-23] MEDS ORDERED: [UNRECOGNIZED DRUG - OTHER] MC SCH (09:00)
--- NOTE | 2019-07-23 09:45 | NUR ---
DR. HURT AT THE BEDSIDE, REMOVED DRESSING FROM NECK, REMOVED MALICK DRAIN. REDRESSED AREA WITH DRY DRESSING. ORDERED TO DISCONTINUE DEVICE REPAIR TECHNICIAN MORPHINE. AND OK TO BE DISCHARGED HOME FOLLOW UP ON SUNDAY. PATIENT AND SPOUSE EDUCATED ON INCISIONAL CARE AND PRECAUTIONS.
--- NOTE | 2019-07-23 10:31 | NUR ---
DISCHARGE INSTRUCTIONS GIVEN TO PATIENT AND SPOUSE AT BEDSIDE. MADE AWARE OF NEED TO FOLLOW UP WITH DR. HURT ON SUNDAY UNABLE TO SCHEDULE APPOINTMENT DUE TO OFFICE CLOSED. MADE AWARE OF NEW RX FOR TYLENOL #3 AND KEFLEX PO. PATIENT AT THIS TIME DENIES ANY PAIN, VOICES SHE IS READY TO GO HOME. IV TO LEFT AC REMOVED WITH NO COMPLICATIONS. DRESSING TO NECK DRY AND INTACT. INSTRUCTED ALL HOME MEDICATIONS CONTINUE WITH NO CHANGE. PATIENT WILL BE TRANSPORTED HOME BY SPOUSE
[2019-07-23] MEDS: CEPHALEXIN 500 MG CAPSULE PO SCH (11:11)
== END 2019-07-23 11:15 | disposition home or self-care (01) ==
LOC: DAH 06:35 → DAHIP 06:36 → 4DH 10:18
PROVIDERS: ADMIT Otolaryngology Plastic Surgery within the Head & Neck; ATTEND Otolaryngology Plastic Surgery within the Head & Neck
DX: C73 Malignant neoplasm of thyroid gland (principal); E11.9 Type 2 diabetes mellitus without complications; Z96.652 Presence of left artificial knee joint; Z88.2 Allergy status to sulfonamides
CPT/HCPCS: 36415 ×3; 60210; 60512; 80048; 82948 ×6; 85025 ×2; 85027; 88307; 96372 ×2; 96374; A4215; A4221; A4222; A4223; A4452; A4663; G0378 ×19; J0330; J0690; J1100; J1815 ×4; J2270; J2370; J2704; J3010 ×3; J3490 ×3; J7030; J7042; J7512

== ENCOUNTER → 2019-11-06 | Outpatient (CLI) | payer BC ==
[~2019-11-06] MED LIST changes: -MAGN400T40 PO; +PRED5TAB PO
== END | disposition home or self-care (01) ==
LOC: RAH 13:22
PROVIDERS: ATTEND Urology
DX: K57.30 Diverticulosis of large intestine without perforation or abscess without bleeding (principal); K76.0 Fatty (change of) liver, not elsewhere classified; K42.9 Umbilical hernia without obstruction or gangrene; K59.00 Constipation, unspecified; Z90.49 Acquired absence of other specified parts of digestive tract
CPT/HCPCS: 74176

== ENCOUNTER → 2023-12-14 | Outpatient (CLI) | payer OTHER ==
[~2023-12-14] MED LIST changes: -PANT40TA25 PO; +PANT40TA54 PO
== END | disposition home or self-care (01) ==
LOC: RAH 09:42
PROVIDERS: ATTEND Internal Medicine Gastroenterology
DX: R13.10 Dysphagia, unspecified (principal)
CPT/HCPCS: 74220

== ENCOUNTER → 2024-01-16 | Outpatient (CLI) | payer OTHER | END | disposition home or self-care (01) | LOC: RAH 12:57 | PROVIDERS: ATTEND Internal Medicine Gastroenterology | DX: R13.11 Dysphagia, oral phase (principal); R63.30 Feeding difficulties, unspecified | CPT/HCPCS: 74230; 92611 ==

== ENCOUNTER 2024-09-20 23:26 | Emergency (ER) | payer OTHER ==
[~2024-09-20] VITALS: Ht 154.9 cm; Wt 97.1 kg
--- NOTE | 2024-09-21 00:07 | ERN ---
ED Note History of Present Illness Stated Complaint: FALL Chief Complaint: Mechanical Fall Time Seen by MD: 00:00 Dictation: Ms. Ryan is a 69-year-old female came to the ER due to pain after she sustained a fall at 5:00 p.m. today. Patient went to a store and apparently tripped on the [employer] and fell forward and outstretched her arms to support herself but right knee hit the floor. She did not sustain any injury to the head or rest of the body most of the pain since fall has been in the knee right knee, right hip and both the wrists. No loss of consciousness patient is not on any blood thinners. She drove herself home and ambulated without any iss ues. As she informed her about the fall, she also began experiencing pain and decided to come into the ER for evaluation. She had a walker at homes since her knee surgery many years ago and she use the walker today Temperature 98.1 pulse 81 respirations 20 blood pressure 118/79 with a pulse oximetry of 96% on room air Her chronic medical problems include diabetes mellitus type 2, hypertension and morbid obesity, degenerative arthritis of the knee Allergies: Coded Allergies: Sulfa(Sulfonamide Antibiotics) (Verified Allergy, 05/15/12) Home Meds Active Scripts Acetaminophen with Codeine (Acetaminophen-Cod #3 Tablet) 300 Mg-30 Mg Tablet, 1 TAB PO Q6HPRN for pain, #20 TAB Prov:AXEL PAGAN MD 09/21/24 Reported Medications Prednisone (Prednisone) 5 Mg Tablet, 5 MG PO AM, TAB 07/22/19 Insulin NPL/Insulin Lispro (Humalog Mix 75/25) 100 Units/Ml Inj, 42 UNITS SQ ACDINNER, ML 03/02/19 Insulin NPL/Insulin Lispro (Humalog Mix 75/25) 100 Units/Ml Inj, 17 UNITS SQ ACLUNCH, ML 03/02/19 Insulin NPL/Insulin Lispro (Humalog Mix 75/25) 100 Units/Ml Inj, 48 UNITS SQ ACBKFST, ML 03/02/19 [Probiotic 20 Billion] No Conflict Check, 1 DOSE PO DAILYBKFST 03/02/19 [place]-3/Dha/Epa/Fish Oil (Fish Oil Conc 1,000 mg Softgel) 1,000 Mg Capsule, 1000 MG PO BIDMEALS, CAP 03/02/19 Wheat Dextrin (Benefiber) 1 Each Powd.pack, 1 EACH PO DAILY 03/02/19 Aspirin (Aspirin) 325 Mg Tablet, 325 MG PO DAILY, TAB 03/02/19 Metformin HCl (Metformin HCl) 1,000 Mg Tablet, 1000 MG PO BIDMEALS, TAB 03/02/19 Zolpidem Tartrate (Zolpidem Tartrate) 10 Mg Tablet, 10 MG PO HS, TAB 03/02/19 Urine Leukocyte Test (Azo) 1 Each Strip, 1 EACH MC DAILY, EACH 07/02/17 Simvastatin (Simvastatin) 40 Mg Tablet, 40 MG PO HS, TAB 07/02/17 Mirabegron (Myrbetriq) 25 Mg Tab.er.24h, 25 MG PO AM, TAB 08/18/16 Pantoprazole Sodium (Pantoprazole Sodium) 40 Mg Tablet.dr, 40 MG PO AM, TAB 08/18/16 Past Medical History Past Medical History: Diabetes-Type II, Hypertension Surgical History: Other Surgical History Other: LEFT KNEE, RT SHOULDER Family History: Negative Social History: Negative History: Not Applicable RN Note Reviewed/Agreed w/PFSH: Yes Review of System Dictation Constitutional: Negative for fever,chills, and weight loss Eyes: Negative for injury, pain,redness, and discharge ENT: Negative for injury,pain or swelling Cardiovascular: Negative for chest pain, palpitations, and edema Respiratory: Negative for shortness of breath, cough, and wheezing, Abdomen/GI: Negative for abdominal pain, nausea, vomiting, diarrhea, and constipation Back: Negative for injury and pain : Negative for injury, bleeding and discharge MS/Extremity: Positive for injury to the knees, hips and unable to bear weight and get out of chair also pain of both the wrists due to outstretched hands during fall Skin: Negative for rash, and discoloration Neuro: Negative for headache, weakness, numbness, tingling, and seizure Psych: Negative for suicide ideation, homicidal ideation, and hallucinations Initial Vital Sign VS Vital Signs Date Time Temp Pulse Resp B/P (MAP) Pulse Ox O2 Delivery O2 Flow Rate FiO2 09/20/24 23:27 98.1 81 20 118/79 96 Room Air Physical Exam Dictation General: awake, alert, NAD , extremely obese Head/Face: Normocephalic, atraumatic Eyes: PERRL, EOMI, vision at baseline ENT: oral cavity clear, TMs clear, no signs of infection Neck: Trachea midline, supple, no nuchal rigidity Cardiovascular: RRR, normal S1/S2, No MRGs, no JVD Respiratory: CTAB, no respiratory distress, No rales or wheezes Abdomen: Soft, non-tender, non-distended, normal bowel sounds, no guarding or rebound. Skin: Warm, dry, normal turgor, no rash MS/Extremity: Pulses equal, no cyanosis, neurovascular intact, FROM ecchymosis on the right knee joint. Unable to define the joint due to excessive adipose tissue Neuro: COAx4, GCS 15, strength 5/5, CN 2-12 intact, normal cerebellar exam, normal gait, Psych: Normal behavior, mood, and affect normal Extremities-trace edema without any palpable cords, Homans sign is negative Results (Laboratory/Radiology) Labs Reviewed?: Yes ED Course ED Course Orders Procedure Category Date Status Time Knee 4+Vws Rt RAD 09/20/24 Resulted 23:39 Wrist Comp 3+Vws Lt RAD 09/20/24 Resulted 23:39 Wrist Comp 3+Vws Rt RAD 09/20/24 Resulted 23:39 Femur 2vw Right RAD 09/20/24 Resulted 23:39 Ketorolac PHA 09/21/24 Complete Tromethamine 30mg/Ml 01:30 Morphine 4mg Syg PHA 09/21/24 In Process (Morphine 4mg Syg) 02:30 Current Medications Medications (Trade) Dose Ordered Sig/Francisca Route PRN Reason Start Time Stop Time Status Last Admin Dose Admin Ketorolac Tromethamine (toRADol) 30 mg ONCE ONCE IM 09/21/24 01:30 09/21/24 01:31 DC 09/21/24 01:31 Morphine Sulfate (morPHINE 4MG SYG) 4 mg ONCE ONCE IM 09/21/24 02:30 09/21/24 02:31 Vital Signs Date Time Temp Pulse Resp B/P (MAP) Pulse Ox O2 Delivery O2 Flow Rate FiO2 09/20/24 23:27 98.1 81 20 118/79 96 Room Air We will perform imaging and administer medications according to the patient's complaint. Once the results are available, will review and personally interpreted the labs to rule out any acute life-threatening emergency the trach require immediate intervention and treatment. I will then re-evaluate the patient after treatment and diagnostic exams have return to determine whether the patient requires any further testing, can safely be discharged home or need further admission to hospital for additional treatment and evaluation. I reviewed all the x-rays which do not show any acute displaced fracture or dislocation. I went over the x-ray results with the patient and her spouse. Patient was able to transfer herself from wheelchair to the stretcher with some difficulty. Pain medications and they are insisting on going home and they already have wa lker at home Counseled on weight loss exercise and lifestyle changes Medical Decision Making MDM MDM: Differential diagnosis: Fracture, dislocation, contusion, ligamental tear, hematoma Rationale: Tests considered and ordered secondary to shared decision making include: Previous outside records reviewed: Old ER visits. Risk of complication and/or morbidity or mortality of patient management: None Medications-Per medication reconciliation Need for hospitalization: Patient does not meet criteria for hospitalization. Need for emergency major/minor surgery: No There are no social concerns with this patient. Prescription drug management Prescriptions will include symptomatic care Patient's prior external medical records from other ER visits were reviewed by me as indicated. Prior testing and results from previous visits were reviewed. Prior tests were taken into account with medical decision making and resource utilization, independent historian/historians were used to obtain complete medical history. I independently interpreted the test that were performed, results were reviewed by me and considered findings on radiology if ordered. Medical management and examination interpretation discussions were had by me with other qualified healthcare professionals as indicated for the patient's care. Problem List Problem List: (1) Fall from standing (2) Contusion of right knee (3) Bilateral wrist pain (4) Strain of wrist, bilateral DX & DISP Disposition: Discharge Departure Impression: Primary Impression: Fall from standing Additional Impressions: Contusion of right knee, Bilateral wrist pain, Strain of wrist, bilateral Condition: Stable Scripts Acetaminophen with Codeine (Acetaminophen-Cod #3 Tablet) 300 Mg-30 Mg Tablet 1 TAB PO Q6HPRN for pain, #20 TAB Prov: AXEL PAGAN MD 09/21/24 Additional Instructions: Patient and the caregiver have been informed of all the diagnostic tests and the imaging conducted during the today's visit to the emergency room and has verbalized understanding of the results I have personally reviewed and interpreted all diagnostic exams performed here in the ER today as well as the vital signs documented by the nursing staff. The patient is now being discharged to home and should follow up with the primary care physician or the specialist as directed by the ER staff. Follow-up with primary care provider in 1 to 2 days. Take medications as directed here in the emergency room. Okay to continue home medications unless otherwise discussed during your visit in the emergency room today. Return to your nearest emergency room if symptoms worsen or if there is no improvement. Call 911 if you need immediate assistance. Take Tylenol or Motrin [id number] as needed and if no contraindications are present. Increase oral hydration. A wound culture or urine culture was ordered here in the emergency room department please follow-up with primary care provider and advise them to get repeat ports from our facility. If you had any Boni wrap/splints that were applied here, please do not remove them until you see your primary care or specialty. Patient and spouse indicated that they have a walker at home and that she would rather be discharged to home to follow up with her primary care Referrals: GILBERT NGUYEN MD (PCP) AXEL PAGAN MD Sep 21, 2024 00:07
--- NOTE | 2024-09-21 00:58 | NUR ---
ANOTHER ICDE PACK PROVIDED TO RT KNEE WITH BARRIER IN PLACE
--- NOTE | 2024-09-21 01:18 | HMCIMG ---
FEMUR 2VW RIGHT HISTORY: Status post fall COMPARISON: None TECHNIQUE: 4 images of right femur were obtained. FINDINGS: There is no acute displaced fracture or dislocation. Osteopenia is seen. Degenerative changes are seen. IMPRESSION: 1. Findings as described above.
--- NOTE | 2024-09-21 01:26 | HMCIMG ---
WRIST COMP 3+VWS RT HISTORY: Status post fall COMPARISON: None TECHNIQUE: 3 images of right wrist were obtained. FINDINGS: Radiocarpal joint space narrowing is seen. There is no acute displaced fracture or dislocation. Degenerative changes are seen. IMPRESSION: 1. Findings as described above.
--- NOTE | 2024-09-21 01:26 | HMCIMG ---
WRIST COMP 3+VWS LT HISTORY: Status post fall COMPARISON: None TECHNIQUE: 3 images of left wrist were obtained. FINDINGS: There is no acute displaced fracture or dislocation. There is soft tissue swelling. Degenerative changes are seen. IMPRESSION: 1. Findings as described above.
--- NOTE | 2024-09-21 01:28 | HMCIMG ---
KNEE 4+VWS RT REASON: FALL, STANDING POSITION. BRUISING. COMPARISON: None TECHNIQUE: 3 images of right knee were obtained. FINDINGS: There appears to be radiopaque debris noted at the lateral aspect of the right knee. Medial femorotibial joint space narrowing is seen. There is no acute displaced fracture or dislocation. Vascular calcifications are seen. IMPRESSION: Findings as described above.
[2024-09-21] MEDS: ketOROlac 30MG VIAL (30MG/ML) IM ONE (01:31)
[2024-09-21] MEDS ORDERED: ACET-2079 PO (02:17)
[2024-09-21] MEDS: morPHINE 4 MG SYG IM ONE (02:31)
[2024-09-21 03:03] VITALS: TEMP 98.3
[2024-09-21] MEDS: hydroMORPHone 1 MG INJ IVP ONE (03:26)
[2024-09-21 05:12] VITALS: BP 118/81; PULSE 68; RESP 18; O2SAT 96
== END 2024-09-21 05:12 | disposition home or self-care (01) ==
LOC: EDH 23:26
DX: S66.811A Strain of other specified muscles, fascia and tendons at wrist and hand level, right hand, initial encounter (principal); S66.812A Strain of other specified muscles, fascia and tendons at wrist and hand level, left hand, initial encounter; S80.01XA Contusion of right knee, initial encounter; E11.9 Type 2 diabetes mellitus without complications; I10 Essential (primary) hypertension; Z79.82 Long term (current) use of aspirin; Z79.899 Other long term (current) drug therapy; Z88.2 Allergy status to sulfonamides; Z98.890 Other specified postprocedural states; W01.0XXA Fall on same level from slipping, tripping and stumbling without subsequent striking against object, initial encounter; Y93.9 Activity, unspecified; Y92.89 Other specified places as the place of occurrence of the external cause; Y99.8 Other external cause status
CPT/HCPCS: 99283; 73552; 73564; 73110; 96374; 96372 ×2; J1885; J1171; J2270; 99284